=== PATIENT | male | born 1980 | race Caucasian/White ===

== ENCOUNTER 2018-01-19 12:22 | Emergency (ER) | END 2018-01-19 16:18 | disposition home or self-care (01) ==

== ENCOUNTER 2019-01-27 12:55 | Emergency (ER) | payer MEDICAID, OTHER ==
[~2019-01-27] VITALS: Ht 177.8 cm; Wt 78.9 kg
[~2019-01-27 12:55] MED LIST: ALBU18HF INHALATION; D-ME118S6 PO; D-ME473S2 PO; LORA1TAB PO; MED4DP PO; MONT10TA21 PO; PRED20TA PO
[2019-01-27 12:57] VITALS: BP 149/91; PULSE 103; RESP 18; Ht 177.8 cm; Wt 78.9 kg
== END 2019-01-27 12:57 | disposition home or self-care (01) ==
LOC: FTE 12:55 → E/R 12:57
DX: R05 Cough (principal); J45.901 Unspecified asthma with (acute) exacerbation
CPT/HCPCS: 99283